=== PATIENT | male | born 1995 | race Caucasian/White ===

== ENCOUNTER 2017-10-20 22:21 | Emergency (ER) | payer OTHER ==
[~2017-10-20] VITALS: Ht 170.2 cm; Wt 86.2 kg
[~2017-10-20 22:21] MED LIST: AZIT250 PO; CIPR250 PO; CIPRO500 MG PO; DIPATR PO; Flomax0.4 MG PO; PROM25 PO; Percocet 5-3251 EACH PO; TYLENOL
== END 2017-10-20 23:16 | disposition home or self-care (01) ==
LOC: ER 22:21
DX: K13.79 Other lesions of oral mucosa (principal)
CPT/HCPCS: 99281

== ENCOUNTER 2019-02-08 18:12 | Emergency (ER) | payer OTHER ==
[~2019-02-08] VITALS: Ht 170.2 cm; Wt 86.2 kg
== END 2019-02-08 19:47 | disposition home or self-care (01) ==
LOC: ER 18:12
DX: S61.511A Laceration without foreign body of right wrist, initial encounter (principal); W25.XXXA Contact with sharp glass, initial encounter
CPT/HCPCS: 12001; 99282-25

== ENCOUNTER 2019-02-19 13:10 | Emergency (ER) | payer OTHER ==
[~2019-02-19] VITALS: Ht 170.2 cm; Wt 88.5 kg
== END 2019-02-19 13:35 | disposition home or self-care (01) ==
LOC: ER 13:10
DX: S61.511D Laceration without foreign body of right wrist, subsequent encounter (principal)

== ENCOUNTER 2019-05-29 18:28 | Emergency (ER) | payer OTHER ==
[~2019-05-29] VITALS: Ht 170.2 cm; Wt 89.4 kg
[2019-05-29] MEDS ORDERED: Augmentin 875-1 EACH PO (20:11)
== END 2019-05-29 20:20 | disposition home or self-care (01) ==
LOC: ER 18:28
DX: S61.552A Open bite of left wrist, initial encounter (principal); S51.851A Open bite of right forearm, initial encounter; S81.851A Open bite, right lower leg, initial encounter; S81.852A Open bite, left lower leg, initial encounter; S61.250A Open bite of right index finger without damage to nail, initial encounter; Z29.14 Encounter for prophylactic rabies immune globulin; W54.0XXA Bitten by dog, initial encounter
CPT/HCPCS: 73110; 90375; 90376; 90471; 90714; 96372; 99283-25

== ENCOUNTER 2019-06-03 14:17 | Emergency (ER) | payer OTHER ==
[~2019-06-03] VITALS: Ht 170.2 cm; Wt 89.4 kg
[~2019-06-03 14:17] MED LIST changes: +Augmentin 875-1 EACH PO
== END 2019-06-03 14:56 | disposition home or self-care (01) ==
LOC: ER 14:17
DX: Z29.14 Encounter for prophylactic rabies immune globulin (principal)
CPT/HCPCS: 90471

== ENCOUNTER 2019-06-07 16:25 | Emergency (ER) | payer OTHER ==
[~2019-06-07] VITALS: Ht 170.2 cm; Wt 89.4 kg
== END 2019-06-07 17:00 | disposition home or self-care (01) ==
LOC: ER 16:25
DX: Z23 Encounter for immunization (principal); S61.452D Open bite of left hand, subsequent encounter
CPT/HCPCS: 90471

== ENCOUNTER → 2024-02-09 | Outpatient (CLI) | payer OTHER ==
[2024-02-09 16:24] LABS: Source, Urine Voided
[2024-02-09 18:36] LABS: Amorphous Heavy (0-Heavy); Bacteria Mod /hpf; Squamous Epithelial Cells Rare /hpf (Few)
== END | disposition home or self-care (01) ==
LOC: LAB 16:21 → LAB SHORT 16:21
PROVIDERS: Family Medicine
DX: R31.9 Hematuria, unspecified (principal)
CPT/HCPCS: 81015

== ENCOUNTER 2024-02-28 21:01 | Emergency (ER) | payer OTHER ==
[~2024-02-28] VITALS: Ht 170.2 cm; Wt 98.4 kg
[2024-02-28 21:54] LABS: BASOPHILS ABSOLUTE AUTO 0.07 K/mm3 (0.00-0.23); BASOPHILS PERCENT AUTO 1 % (0-2); EOSINOPHILS ABSOLUTE AUTO 0.34 K/mm3 (0.00-0.68); EOSINOPHILS PERCENT AUTO 3 % (0-6); Hematocrit 45.3 % (37.0-53.0); Hemoglobin 15.3 g/dL (13.5-17.5); IMMATURE GRAN ABSOLUTE AUTO 0.04 K/mm3 (0.00-0.10); IMMATURE GRAN PERCENT AUTO 0 % (0-1); LYMPHOCYTES ABSOLUTE AUTO 3.99 K/mm3 (0.84-5.20); LYMPHOCYTES PERCENT AUTO 39 % (21-46); MONOCYTES ABSOLUTE AUTO 0.68 K/mm3 (0.16-1.47); MONOCYTES PERCENT AUTO 7 % (4-13); Mean Corpuscular HGB 29.1 pg (26.0-34.0); Mean Corpuscular HGB Conc 33.8 g/dL (31.5-36.5); Mean Corpuscular Volume 86 fL (80-100); Mean Platelet Volume 8.7 fL (9.1-12.4); NEUTROPHILS PERCENT AUTO 50 % (41-73); Platelet Count 409 K/mm3 (150-400); RDW Coefficient Variation 12.8 % (11.7-14.2); RDW Standard Deviation 39.8 fL (35.1-46.3); Red Blood Cell Count 5.26 M/mm3 (4.30-5.90); White Blood Cell Count 10.32 K/mm3 (4.00-11.30)
[2024-02-28 22:11] LABS: Albumin, Blood 4.1 g/dL (3.4-5.0); Albumin/Globulin Ratio 1.2 (0.8-1.8); Bilirubin, Total 0.3 mg/dL (0.1-1.0); Creatinine, Blood 0.91 mg/dL (0.60-1.20); Globulin, Blood 3.3 g/dL (2.2-4.0); Potassium, Blood 3.7 mmol/L (3.5-5.5); Total Protein, Blood 7.4 g/dL (6.4-8.2)
[2024-02-29] MEDS ORDERED: Tamsulosin HCl 0.4 MG Cap PO ONE (01:55)
[2024-02-29 02:10] LABS: Source, Urine Clean Catch
[2024-02-29 02:16] LABS: Bilirubin, Urine Neg (Neg); Blood, Urine 5+ (Neg); Glucose Qualitative, Urine Neg (Neg); Ketones, Urine Neg (Neg); Leukocyte Esterase, Urine Neg (Neg); Nitrite, Urine Neg (Neg); Protein, Urine 2+ (Neg); Specific Gravity, Urine 1.025 (1.003-1.022); Urobilinogen, Urine NORM (Normal)
[2024-02-29 02:31] LABS: Appearance, Urine Hazy (Clear); Color, Urine Yellow (P-Yellow)
[2024-02-29 02:32] LABS: Amorphous Light (0-Heavy); Bacteria Rare /hpf; Mucus Light (0-Heavy); Squamous Epithelial Cells Rare /hpf (Few); White Blood Cells, Urine 0-2 /hpf (0-5)
[2024-02-29 02:33] LABS: Red Blood Cells, Urine TNTC /hpf (0-2)
[2024-02-29] MEDS ORDERED: TAMS.4ER PO (03:22)
[2024-02-29] MEDS ORDERED: HYDR1TAB94 PO (03:22)
[2024-02-29 03:38] VITALS: BP 152/94
[2024-02-29] MEDS ORDERED: RX Prepack 6 Tabs Oxycodone 5mg UD ONE (03:40)
== END 2024-02-29 03:43 | disposition home or self-care (01) ==
LOC: ER 21:01
PROVIDERS: Student in an Organized Health Care Education/Training Program
DX: N13.2 Hydronephrosis with renal and ureteral calculous obstruction (principal)
CPT/HCPCS: 76770; 80053; 81001; 83690; 85025; A9270